=== PATIENT | male | born 1935 | race Caucasian/White ===

== ENCOUNTER → 2021-04-04 | Outpatient (CLI) | payer MEDICARE, BC | LOC: HEART CORB 13:33 | DX: I50.32 Chronic diastolic (congestive) heart failure (principal); I48.21 Permanent atrial fibrillation; I08.3 Combined rheumatic disorders of mitral, aortic and tricuspid valves; I27.20 Pulmonary hypertension, unspecified | CPT/HCPCS: 93306 ==